=== PATIENT | female | born 1995 | race Caucasian/White ===

== ENCOUNTER 2018-09-15 05:23 | Observation (INO) | payer OTHER ==
[~2018-09-15] VITALS: Ht 167.6 cm; Wt 80.7 kg
[2018-09-15] MEDS ORDERED: BUTORPHANOL TARTRATE 2 MG/ML VIAL IV PRN (05:45)
[2018-09-15] MEDS: LACTATED RINGERS 1,000 ML IV SCH ×2 (06:02→10:26)
[2018-09-15 06:03] VITALS: BP 117/73
[2018-09-15 07:52] LABS: CLARITY URINE CLEAR (CLEAR); COLOR URINE YELLOW (YELLOW); KETONES URINE NEGATIVE (NEGATIVE); LEUKOCYTE ESTERASE URINE NEGATIVE (NEGATIVE); NITRITE URINE NEGATIVE (NEGATIVE); OCCULT BLOOD URINE NEGATIVE (NEGATIVE); PROTEIN URINE NEGATIVE (NEGATIVE); SPECIFIC GRAVITY URINE 1.005 (1.005-1.030); UROBILINOGEN URINE 0.2 E.U./dL (0.2-1.0)
[2018-09-15 08:09] LABS: *AMPHETAMINES SCREEN URINE NEGATIVE (NEGATIVE); *BARBITURATES SCREEN URINE NEGATIVE (NEGATIVE); *BENZODIAZEPINES SCREEN URINE NEGATIVE (NEGATIVE); *COCAINE SCREEN URINE NEGATIVE (NEGATIVE); CANNABINOID URINE SCREEN NEGATIVE (NEGATIVE); METHADONE URINE SCREEN NEGATIVE (NEGATIVE); OPIATES URINE SCREEN NEGATIVE (NEGATIVE); PHENCYCLIDINE URINE SCREEN NEGATIVE (NEGATIVE)
[2018-09-15] MEDS: PANTOPRAZOLE 40MG DR TABLET PO SCH (14:39)
[2018-09-15] MEDS: INDOMETHACIN 50MG CAPSULE PO SCH ×2 (14:40→22:38)
[2018-09-16] MEDS: PANTOPRAZOLE 40MG DR TABLET PO SCH (06:54)
[2018-09-16] MEDS: INDOMETHACIN 50MG CAPSULE PO SCH (06:55)
== END 2018-09-16 11:20 | disposition home or self-care (01) ==
LOC: 8 EST LDRP 05:23
PROVIDERS: ADMIT Specialist; ATTEND Specialist
DX: O26.892 Other specified pregnancy related conditions, second trimester (principal); R10.84 Generalized abdominal pain; M25.552 Pain in left hip; Z3A.21 21 weeks gestation of pregnancy
CPT/HCPCS: 72195; 74181; 76700; 76805; 80305; 81003; 93970; 96374; 99281; G0378; J0595; 96360; 96361; J7120

== ENCOUNTER 2018-12-09 02:48 | Observation (INO) | payer OTHER ==
[~2018-12-09] VITALS: Ht 154.9 cm; Wt 85.3 kg
[2018-12-09] MEDS ORDERED: CITRIC ACID/SODIUM CITRATE SOLN 30ML UDC PO SCH (04:15)
[2018-12-09] MEDS ORDERED: PREN1TAB78 MT (04:22)
== END 2018-12-09 04:45 | disposition home or self-care (01) ==
LOC: 8 EST LDRP 02:48
PROVIDERS: ADMIT Obstetrics & Gynecology; ATTEND Obstetrics & Gynecology
DX: O26.893 Other specified pregnancy related conditions, third trimester (principal); R10.13 Epigastric pain; Z3A.33 33 weeks gestation of pregnancy
CPT/HCPCS: 99281; G0378

== ENCOUNTER 2019-09-09 21:42 | Emergency (ER) | payer OTHER ==
[~2019-09-09] VITALS: Ht 154.9 cm; Wt 79.0 kg
[~2019-09-09 21:42] MED LIST: PREN1TAB78 MT
[2019-09-09 22:14] VITALS: BP 115/64
== END 2019-09-10 02:50 | disposition left against medical advice (07) ==
LOC: ER 21:42
DX: O26.899 Other specified pregnancy related conditions, unspecified trimester (principal); R10.30 Lower abdominal pain, unspecified; Z3A.00 Weeks of gestation of pregnancy not specified; Z53.21 Procedure and treatment not carried out due to patient leaving prior to being seen by health care provider

== ENCOUNTER 2020-02-16 09:27 | Inpatient (IN) | payer OTHER ==
[~2020-02-16] VITALS: Ht 154.9 cm; Wt 83.9 kg
[2020-02-16 11:32] LABS: BASOPHILS % 1.1 % (0.0-2.0); EOSINOPHILS % 0.6 % (0.0-5.0); HEMATOCRIT. 36.7 % (36.0-48.0); LYMPHOCYTES % 27.2 % (20.0-50.0); MEAN CORPUSCULAR HEMOGLOBIN 31.8 pg (28.0-32.0); MONOCYTES % 4.2 % (2.0-8.0); NEUTROPHILS % 66.9 % (40.0-76.0); RED BLOOD CELL COUNT 4.08 mill/uL (4.2-5.4); RED CELL DISTRIBUTION WIDTH 14.4 % (11.6-14.6)
[2020-02-16 11:39] LABS: CHLORIDE 112 mEq/L (98-107)
[2020-02-16 11:42] LABS: CLARITY URINE CLEAR (CLEAR); COLOR URINE YELLOW (YELLOW); KETONES URINE NEGATIVE (NEGATIVE); LEUKOCYTE ESTERASE URINE NEGATIVE (NEGATIVE); NITRITE URINE NEGATIVE (NEGATIVE); OCCULT BLOOD URINE NEGATIVE (NEGATIVE); PROTEIN URINE 2+ (NEGATIVE); UROBILINOGEN URINE 0.2 E.U./dL (0.2-1.0)
[2020-02-16 11:49] LABS: D-DIMER 0.97 mg/L FEU (<0.50); INR 0.9; PARTIAL THROMBOPLASTIN TIME 27.8 sec (23.4-31.0); PROTHROMBIN TIME 9.4 sec (9.6-11.0)
[2020-02-16 12:11] LABS: PLATELET 138 x1000/uL (130-400)
[2020-02-16] MEDS ORDERED: MAGNESIUM 20 G PREMIX (L & D) 500 ML IV SCH (12:19)
[2020-02-16] MEDS ORDERED: MAGNESIUM 4 G PREMIX 100 ML IV NR (12:19)
[2020-02-16] MEDS: LACTATED RINGERS 1,000 ML IV SCH (12:41)
[2020-02-16] MEDS: ACETAMINOPHEN 500MG TABLET PO PRN ×2 (14:44→23:45)
[2020-02-16 19:06] LABS: HEPATITIS B SURFACE ANTIGEN NEGATIVE
[2020-02-16 20:35] LABS: CLARITY URINE CLEAR (CLEAR); COLOR URINE YELLOW (YELLOW); KETONES URINE TRACE (NEGATIVE); LEUKOCYTE ESTERASE URINE NEGATIVE (NEGATIVE); NITRITE URINE NEGATIVE (NEGATIVE); OCCULT BLOOD URINE 2+ (NEGATIVE); PROTEIN URINE NEGATIVE (NEGATIVE); SPECIFIC GRAVITY URINE 1.015 (1.005-1.030); UROBILINOGEN URINE 0.2 E.U./dL (0.2-1.0)
[2020-02-16 20:38] LABS: BASOPHILS % 0.3 % (0.0-2.0); EOSINOPHILS % 0.5 % (0.0-5.0); HEMATOCRIT. 36.5 % (36.0-48.0); HEMOGLOBIN. 12.8 g/dL (12.0-16.0); LYMPHOCYTES % 25.1 % (20.0-50.0); MEAN CORPUSCULAR HEMOGLOBIN 31.1 pg (28.0-32.0); MEAN CORPUSCULAR VOLUME 88.8 fL (81.0-99.0); MEAN PLATELET VOLUME 10.4 fl (7.4-10.4); MONOCYTES % 3.2 % (2.0-8.0); NEUTROPHILS % 70.9 % (40.0-76.0); PLATELET 147 x1000/uL (130-400); RED BLOOD CELL COUNT 4.12 mill/uL (4.2-5.4); RED CELL DISTRIBUTION WIDTH 14.5 % (11.6-14.6)
[2020-02-16 20:45] LABS: CHLORIDE 108 mEq/L (98-107)
[2020-02-16 20:47] LABS: *AMPHETAMINES SCREEN URINE NEGATIVE (NEGATIVE); CANNABINOID URINE SCREEN NEGATIVE (NEGATIVE); PHENCYCLIDINE URINE SCREEN NEGATIVE (NEGATIVE)
[2020-02-16 20:48] LABS: *BARBITURATES SCREEN URINE NEGATIVE (NEGATIVE); *BENZODIAZEPINES SCREEN URINE NEGATIVE (NEGATIVE); *COCAINE SCREEN URINE NEGATIVE (NEGATIVE); METHADONE URINE SCREEN NEGATIVE (NEGATIVE); OPIATES URINE SCREEN NEGATIVE (NEGATIVE)
[2020-02-16 20:56] LABS: D-DIMER 1.59 mg/L FEU (<0.50); INR 0.8; PARTIAL THROMBOPLASTIN TIME 29.3 sec (23.4-31.0); PROTHROMBIN TIME 9.2 sec (9.6-11.0)
[2020-02-16] MEDS: MAGNESIUM 20 G PREMIX (L & D) 500 ML IV SCH (22:54)
[2020-02-16] MEDS: BETAMETHASONE ACET/BETAMET 30 MG/5 ML VIAL IM SCH (23:04)
[2020-02-17] MEDS ORDERED: AMPICILLIN 2,000 MG in SODIUM CHLORIDE 0.9% 100 ML IV SCH ×2
[2020-02-17] MEDS: LACTATED RINGERS 1,000 ML IV SCH ×2 (02:11→15:03)
[2020-02-17] MEDS: AMPICILLIN 2,000 MG in SODIUM CHLORIDE 0.9% 100 ML IV SCH ×3 (06:01→18:01)
[2020-02-17] MEDS ORDERED: HYDRALAZINE 20MG/ML VIAL IV PRN (11:15)
[2020-02-17] MEDS ORDERED: LABETALOL HCL 5MG/ML VIAL 20ML IV PRN ×3 (11:15)
[2020-02-17] MEDS: MAGNESIUM 20 G PREMIX (L & D) 500 ML IV SCH (19:08)
[2020-02-17] MEDS: BETAMETHASONE ACET/BETAMET 30 MG/5 ML VIAL IM SCH (23:08)
[2020-02-18] MEDS: LACTATED RINGERS 1,000 ML IV SCH ×2 (00:18→07:45)
[2020-02-18 05:38] VITALS: BP 134/63
[2020-02-18] MEDS: ACETAMINOPHEN 500MG TABLET PO PRN (07:39)
== END 2020-02-18 14:00 | disposition home or self-care (01) | DRG 566 ==
LOC: OBSVTOIN 09:27 → 8 EST LDRP 09:27
PROVIDERS: ADMIT Obstetrics & Gynecology; ATTEND Obstetrics & Gynecology
DX: O13.3 Gestational [pregnancy-induced] hypertension without significant proteinuria, third trimester (principal); Z3A.33 33 weeks gestation of pregnancy
CPT/HCPCS: 36415; 76805; 76818; 80053; 80305; 81003; 82575; 83735; 84156; 84550; 85025; 85379; 85384; 86592; 86703; 86762; 86850; 86900; 87340; 96360; 99281; J0290; J0702; J3475; J7050

== ENCOUNTER 2020-02-19 04:17 | Inpatient (IN) | payer OTHER ==
[~2020-02-19] VITALS: Ht 162.6 cm; Wt 83.5 kg
[2020-02-19] MEDS ORDERED: CARBOPROST TROMETHAMINE 250 MCG/ML AMPUL IM PRN (05:15)
[2020-02-19] MEDS ORDERED: HYDRALAZINE 20MG/ML VIAL IV PRN (05:15)
[2020-02-19] MEDS ORDERED: MAGNESIUM 4 G PREMIX 100 ML IV ONE (05:15)
[2020-02-19] MEDS ORDERED: LABETALOL HCL 5MG/ML VIAL 20ML IV PRN ×2 (05:15)
[2020-02-19] MEDS: LACTATED RINGERS 1,000 ML IV SCH (05:25)
[2020-02-19] MEDS: MAGNESIUM 20 G PREMIX (L & D) 500 ML IV SCH ×2 (05:45→13:29)
[2020-02-19] MEDS: LABETALOL HCL 5MG/ML VIAL 20ML IV PRN ×2 (05:49→12:03)
[2020-02-19 06:07] LABS: BASOPHILS % 0.5 % (0.0-2.0); EOSINOPHILS % 0.1 % (0.0-5.0); HEMATOCRIT. 35.7 % (36.0-48.0); HEMOGLOBIN. 12.3 g/dL (12.0-16.0); LYMPHOCYTES % 27.9 % (20.0-50.0); MEAN CORPUSCULAR HEMOGLOBIN 30.9 pg (28.0-32.0); MEAN CORPUSCULAR VOLUME 89.5 fL (81.0-99.0); MEAN PLATELET VOLUME 11.5 fl (7.4-10.4); MONOCYTES % 5.4 % (2.0-8.0); NEUTROPHILS % 66.1 % (40.0-76.0); PLATELET 167 x1000/uL (130-400); RED BLOOD CELL COUNT 3.98 mill/uL (4.2-5.4); RED CELL DISTRIBUTION WIDTH 14.4 % (11.6-14.6)
[2020-02-19 06:11] LABS: CHLORIDE 109 mEq/L (98-107)
[2020-02-19 06:13] LABS: CLARITY URINE CLEAR (CLEAR); COLOR URINE YELLOW (YELLOW); KETONES URINE NEGATIVE (NEGATIVE); LEUKOCYTE ESTERASE URINE NEGATIVE (NEGATIVE); NITRITE URINE NEGATIVE (NEGATIVE); OCCULT BLOOD URINE NEGATIVE (NEGATIVE); PH URINE 7.5 (4.5-8.0); PROTEIN URINE 1+ (NEGATIVE); SPECIFIC GRAVITY URINE 1.015 (1.005-1.030); UROBILINOGEN URINE 0.2 E.U./dL (0.2-1.0)
[2020-02-19 06:16] LABS: D-DIMER 1.32 mg/L FEU (<0.50); INR 0.9; PARTIAL THROMBOPLASTIN TIME 26.4 sec (23.4-31.0); PROTHROMBIN TIME 9.6 sec (9.6-11.0)
[2020-02-19 06:29] LABS: *AMPHETAMINES SCREEN URINE NEGATIVE (NEGATIVE); *BARBITURATES SCREEN URINE NEGATIVE (NEGATIVE); *BENZODIAZEPINES SCREEN URINE NEGATIVE (NEGATIVE); *COCAINE SCREEN URINE NEGATIVE (NEGATIVE); METHADONE URINE SCREEN NEGATIVE (NEGATIVE); OPIATES URINE SCREEN NEGATIVE (NEGATIVE)
[2020-02-19 06:30] LABS: CANNABINOID URINE SCREEN NEGATIVE (NEGATIVE); PHENCYCLIDINE URINE SCREEN NEGATIVE (NEGATIVE)
[2020-02-19] MEDS ORDERED: CITRIC ACID/SODIUM CITRATE SOLN 30ML UDC PO NR (07:00)
[2020-02-19] MEDS ORDERED: ONDANSETRON HCL 4MG/2ML INJ ONE (07:05)
[2020-02-19] MEDS ORDERED: OXYTOCIN 10 UNITS/ML 1ML ONE (07:05)
[2020-02-19] MEDS ORDERED: GLYCOPYRROLATE 0.2 MG/ML 2ML VIAL ONE (07:05)
[2020-02-19] MEDS ORDERED: FENTANYL CITRATE/PF 50MCG/ML 2ML VIAL ONE (07:05)
[2020-02-19] MEDS ORDERED: EPHEDRINE SULFATE 50MG/ML VIAL ONE (07:05)
[2020-02-19] MEDS ORDERED: PHENYLEPHRINE HCL 10 MG/ML 1ML (IV VIAL) IV ONE (07:05)
[2020-02-19] MEDS ORDERED: CEFAZOLIN SODIUM 1000MG/VIAL ONE (07:05)
[2020-02-19] MEDS ORDERED: MORPHINE SULFATE/PF 1MG/ML 10ML AMP ONE (07:05)
[2020-02-19] MEDS ORDERED: DIPHENHYDRAMINE 50MG/ML VIAL ONE (14:32)
[2020-02-19] MEDS ORDERED: KETOROLAC 60MG/2ML VIAL IM ONE (14:32)
[2020-02-19] MEDS ORDERED: DEXT 5%/LR + PITOCIN 20UNITS/L 1,000 ML IV SCH (15:02)
[2020-02-19] MEDS ORDERED: MAGNESIUM 20 G PREMIX (L & D) 500 ML IV SCH ×3 (15:02→21:00)
[2020-02-19] MEDS ORDERED: BISACODYL 10MG SUPP PR PRN (15:15)
[2020-02-19] MEDS ORDERED: DIPHENHYDRAMINE 25MG CAPSULE PO PRN (15:15)
[2020-02-19] MEDS ORDERED: ONDANSETRON HCL 4MG/2ML INJ IV PRN (15:15)
[2020-02-19] MEDS ORDERED: IBUPROFEN 400MG TABLET PO PRN (15:15)
[2020-02-19] MEDS ORDERED: HEMORRHOIDAL SUPP PR PRN (15:15)
[2020-02-19] MEDS ORDERED: HYDROCODONE/ACETAMINOPHEN 5/325MG TABLET PO PRN (15:15)
[2020-02-19] MEDS ORDERED: LANOLIN OINT 7GM TUBE TOP PRN (15:15)
[2020-02-19] MEDS ORDERED: RHO(D) IMMUNE GLOBULIN 300 MCG/SYR IM PRN (15:15)
[2020-02-19] MEDS ORDERED: NALOXONE HCL 0.4 MG/ML 1ML VIAL IV PRN (15:30)
[2020-02-19] MEDS ORDERED: DIPHENHYDRAMINE 50MG/ML VIAL IV PRN (15:30)
[2020-02-19] MEDS ORDERED: KETOROLAC 30MG/ML VIAL IV SCH (15:30)
[2020-02-19] MEDS ORDERED: BUTORPHANOL TARTRATE 2 MG/ML VIAL IV PRN (15:30)
[2020-02-19] MEDS ORDERED: DOCUSATE SODIUM 100MG CAPSULE PO SCH (21:00)
[2020-02-19 21:30] VITALS: BP 124/67
[2020-02-19 22:00] VITALS: BP 122/73
[2020-02-19 22:30] VITALS: BP 134/78
[2020-02-20] VITALS: BP 130/77
[2020-02-20 04:00] VITALS: BP 141/77
[2020-02-20 08:00] VITALS: BP 143/78
[2020-02-20 08:14] LABS: BASOPHILS % 0.3 % (0.0-2.0); EOSINOPHILS % 0.1 % (0.0-5.0); HEMOGLOBIN. 11.5 g/dL (12.0-16.0); LYMPHOCYTES % 20.7 % (20.0-50.0); MEAN CORPUSCULAR HEMOGLOBIN 31.5 pg (28.0-32.0); MEAN CORPUSCULAR VOLUME 90.3 fL (81.0-99.0); MEAN PLATELET VOLUME 10.6 fl (7.4-10.4); MONOCYTES % 5.3 % (2.0-8.0); NEUTROPHILS % 73.6 % (40.0-76.0); PLATELET 148 x1000/uL (130-400); RED BLOOD CELL COUNT 3.66 mill/uL (4.2-5.4); RED CELL DISTRIBUTION WIDTH 14.3 % (11.6-14.6)
[2020-02-20] MEDS: FERROUS SULFATE 325MG TABLET PO SCH ×3 (08:23→17:21)
[2020-02-20] MEDS: PRENATAL VIT/FE FUMARATE/FA TABLET PO SCH (08:23)
[2020-02-20] MEDS: SIMETHICONE 80MG TABLET CHEW PO SCH ×4 (08:23→21:07)
[2020-02-20] MEDS: MAGNESIUM/ALUMINUM HYDROXIDE/SIMETHICONE 30ML UDC PO SCH ×3 (08:24→21:00)
[2020-02-20] MEDS: LACTATED RINGERS 1,000 ML IV SCH (13:21)
[2020-02-20] MEDS: IBUPROFEN 800MG TABLET PO PRN (14:03)
[2020-02-20 16:03] VITALS: BP 125/66
[2020-02-20 19:30] VITALS: BP 134/72
[2020-02-21 00:10] VITALS: BP 138/76
[2020-02-21 04:30] VITALS: BP 120/66
[2020-02-21] MEDS: IBUPROFEN 800MG TABLET PO PRN ×2 (04:40→09:54)
[2020-02-21] MEDS ORDERED: IBUP-2030 PO (06:00)
[2020-02-21] MEDS ORDERED: HYDR-4001 PO (06:00)
[2020-02-21] MEDS ORDERED: LABE100T5 MT (06:06)
[2020-02-21 08:00] VITALS: BP 129/80
[2020-02-21] MEDS: MAGNESIUM/ALUMINUM HYDROXIDE/SIMETHICONE 30ML UDC PO SCH (09:00)
[2020-02-21] MEDS: PRENATAL VIT/FE FUMARATE/FA TABLET PO SCH (09:53)
[2020-02-21] MEDS: FERROUS SULFATE 325MG TABLET PO SCH (09:53)
[2020-02-21] MEDS: SIMETHICONE 80MG TABLET CHEW PO SCH (09:53)
== END 2020-02-21 12:40 | disposition home or self-care (01) | DRG 540 ==
LOC: OBSVTOIN 04:17 → 8 EST LDRP 04:17 → 8EST 21:37
PROVIDERS: ADMIT Obstetrics & Gynecology; ATTEND Obstetrics & Gynecology
PROC: 10D00Z1 Extraction of Products of Conception, Low, Open Approach (ICD-10-PCS; principal; 2020-02-19)
DX: O13.4 Gestational [pregnancy-induced] hypertension without significant proteinuria, complicating childbirth (principal); O60.14X0 Preterm labor third trimester with preterm delivery third trimester, not applicable or unspecified; O14.14 Severe pre-eclampsia complicating childbirth; N63.10 Unspecified lump in the right breast, unspecified quadrant; O99.89 Other specified diseases and conditions complicating pregnancy, childbirth and the puerperium; O15.2 Eclampsia complicating the puerperium; O34.211 Maternal care for low transverse scar from previous cesarean delivery; Z37.0 Single live birth; Z3A.36 36 weeks gestation of pregnancy; Z82.49 Family history of ischemic heart disease and other diseases of the circulatory system
CPT/HCPCS: 36415; 80053; 80305; 81003; 83735; 84550; 85025; 85379; 85384; 86592; 86703; 86762; 86850; 86900; 86920; 88307; 99281; J0690; J1200; J1885; J2274; J2370; J2405; J2590; J3010; J3475; J3490; J7120

== ENCOUNTER 2022-04-16 07:08 | Observation (INO) | payer OTHER ==
[~2022-04-16] VITALS: Ht 154.9 cm; Wt 87.1 kg
[~2022-04-16 07:08] MED LIST changes: +HYDR-4001 PO; +IBUP-2030 PO; +LABE100T5 MT
[2022-04-16] MEDS ORDERED: LACTATED RINGERS 1,000 ML IV SCH (08:00)
[2022-04-16] MEDS ORDERED: ACETAMINOPHEN 325MG TABLET PO SCH (08:00)
== END 2022-04-16 08:15 | disposition home or self-care (01) ==
LOC: 8 EST LDRP 07:08
PROVIDERS: ADMIT Obstetrics & Gynecology; ATTEND Obstetrics & Gynecology
DX: O26.893 Other specified pregnancy related conditions, third trimester (principal); R07.89 Other chest pain; R10.13 Epigastric pain; R10.10 Upper abdominal pain, unspecified; M25.519 Pain in unspecified shoulder; O99.891 Other specified diseases and conditions complicating pregnancy; M54.9 Dorsalgia, unspecified; Z3A.33 33 weeks gestation of pregnancy
CPT/HCPCS: 59025; G0378; 99281

== ENCOUNTER 2022-04-16 08:20 | Emergency (ER) | payer OTHER ==
[~2022-04-16] VITALS: Ht 167.6 cm; Wt 89.0 kg
[2022-04-16] MEDS ORDERED: MAGNESIUM/ALUMINUM HYDROXIDE/SIMETHICONE 30ML UDC PO STA (09:16)
[2022-04-16 09:46] LABS: BASOPHILS % 0.4 % (0.0-2.0); EOSINOPHILS % 0.4 % (0.0-5.0); HEMATOCRIT. 34.4 % (36.0-48.0); HEMOGLOBIN. 11.8 g/dL (12.0-16.0); LYMPHOCYTES % 22.9 % (20.0-50.0); MEAN CORPUSCULAR HEMOGLOBIN 29.9 pg (28.0-32.0); MEAN CORPUSCULAR VOLUME 87.4 fL (81.0-99.0); MONOCYTES % 3.7 % (2.0-8.0); NEUTROPHILS % 72.6 % (40.0-76.0); PLATELET 169 x1000/uL (130-400); RED BLOOD CELL COUNT 3.94 mill/uL (4.2-5.4); RED CELL DISTRIBUTION WIDTH 14.2 % (11.6-14.6)
[2022-04-16 09:51] LABS: CHLORIDE 109 mEq/L (98-107)
[2022-04-16] MEDS ORDERED: ACETAMINOPHEN 325MG TABLET PO ONE (10:30)
[2022-04-16 11:14] LABS: CLARITY URINE CLEAR (CLEAR); COLOR URINE YELLOW (YELLOW); KETONES URINE NEGATIVE (NEGATIVE); LEUKOCYTE ESTERASE URINE NEGATIVE (NEGATIVE); NITRITE URINE NEGATIVE (NEGATIVE); OCCULT BLOOD URINE NEGATIVE (NEGATIVE); PROTEIN URINE 1+ (NEGATIVE); SPECIFIC GRAVITY URINE 1.011 (1.005-1.030); UROBILINOGEN URINE 0.2 E.U./dL (0.2-1.0)
[2022-04-16 13:58] VITALS: BP 131/68
== END 2022-04-16 14:44 | disposition home or self-care (01) ==
LOC: ER 08:20
DX: O26.893 Other specified pregnancy related conditions, third trimester (principal); R10.13 Epigastric pain; R07.89 Other chest pain; M54.89 Other dorsalgia; Z3A.33 33 weeks gestation of pregnancy
CPT/HCPCS: 36415; 71045; 76705; 80053; 81003; 84484; 85025; 93005; 99285

== ENCOUNTER 2025-04-10 22:52 | Emergency (ER) | payer MEDICAID, OTHER ==
[~2025-04-10] VITALS: Ht 154.9 cm; Wt 90.0 kg
[~2025-04-10 22:52] MED LIST changes: -LABE100T5 MT; +LABE100T9 MT
[2025-04-10 23:34] VITALS: O2SAT 98
[2025-04-11 00:36] VITALS: TEMP 37.4
[2025-04-11] MEDS: METOCLOPRAMIDE HCL 10MG TABLET PO ONE (01:04)
[2025-04-11] MEDS: DIPHENHYDRAMINE 25MG CAPSULE PO ONE (01:04)
[2025-04-11] MEDS: KETOROLAC 30MG/ML VIAL IM ONE (01:23)
[2025-04-11 02:13] LABS: BASOPHILS % 0.4 % (0.0-2.0); EOSINOPHILS % 1.7 % (0.0-5.0); HEMATOCRIT. 37.8 % (36.0-48.0); HEMOGLOBIN. 12.4 g/dL (12.0-16.0); LYMPHOCYTES % 30.1 % (20.0-50.0); MEAN PLATELET VOLUME 9.1 fl (7.4-10.4); MONOCYTES % 4.6 % (2.0-8.0); NEUTROPHILS % 63.2 % (40.0-76.0); PLATELET 220 x1000/uL (130-400); RED BLOOD CELL COUNT 4.76 mill/uL (4.2-5.4); RED CELL DISTRIBUTION WIDTH 16.4 % (11.6-14.6)
[2025-04-11 02:31] LABS: CREATININE 0.7 mg/dL (0.6-1.0); UREA NITROGEN BLOOD 10 mg/dL (9-23)
[2025-04-11 04:44] VITALS: BP 108/55; PULSE 58; RESP 14; O2SAT 98
== END 2025-04-11 04:45 | disposition home or self-care (01) ==
LOC: ER 22:52
DX: R51.9 Headache, unspecified (principal); R53.1 Weakness; Z86.73 Personal history of transient ischemic attack (TIA), and cerebral infarction without residual deficits; Z79.899 Other long term (current) drug therapy; Z98.890 Other specified postprocedural states
CPT/HCPCS: 99285; 80048; 81025; 85025; 36415; 70450; 96372; Q0163; J8597; J1885; Z7610 ×2